=== PATIENT | female | born 1965 | race American Indian/Alaskan Native ===

== ENCOUNTER 2018-04-28 15:00 | Emergency (ER) | payer SELFPAY ==
--- NOTE | 2018-04-28 18:44 | XRay Report ---
FINAL REPORT EXAM: XR CHEST ROUTINE 2V HISTORY: cough TECHNIQUE: Two views of the chest Comparison: None FINDINGS: Normal heart size. Bronchial wall thickening with mild reticular coarsening of the bronchovascular interstitium. Lateral film is mildly motion degraded. No definite effusion. Imaged axial skeleton demonstrates lower cervical degenerative facet osteoarthritis, otherwise unrema rkable. IMPRESSION: Findings compatible with bronchitis, chronicity is unknown. No definite focal pneumonia. Probable underlying pulmonary emphysema. Correlate with smoking history. Lower cervical degenerative arthritis.
--- NOTE | 2018-04-28 20:10 | Emergency Department Report ---
- General Chief Complaint: Upper Respiratory Infection Stated Complaint: COUGHING Time Seen by Provider: 04/28/18 17:36 Source: patient Mode of arrival: Ambulatory Limitations: No Limitations - History of Present Illness Initial Comments: 52-year-old female has a history of HIV presents emergency department complaining of cough and congestion and bronchitis. She was seen at the [facility] 2 day by nurse practitioner and diagnosed with seemed to be bronchitis and treated accordingly with doxycycline and albuterol. She presents emergency department. She states she was advised by the [facility] to come to the ER for further evaluation and definitive management. Patient didn't fill her prescriptions had not yet started them. She reports no progression in her symptoms since June. No hemoptysis, no hematemesis or hematochezia. She denies any fever but has had cough with mucus production. MD Complaint: cough -: Gradual (2 days) Severity: mild Quality: aching Consistency: constant Worsens With: nothing Associated Symptoms: rhinorrhea, nasal congestion, cough. denies: myalgias, diaphoresis, abdominal pain, vomiting, diarrhea, right sweats, weight loss, epistaxis Treatments Prior to Arrival: none - Related Data Previous Rx's Medication Instructions Recorded Last Taken Type guaiFENesin/CODEINE [Robitussin AC] 5 ml PO Q6H PRN #120 ml 04/28/18 Unknown Rx predniSONE [Deltasone] 20 mg PO QDAY #5 tab 04/28/18 Unknown Rx Allergies Allergy/AdvReac Type Severity Reaction Status Date / Time No Known Allergies Allergy Unverified 04/28/18 15:14 ED Review of Systems ROS: Stated complaint: COUGHING Other details as noted in HPI Constitutional: denies: chills, fever Eyes: denies: eye pain, eye discharge, vision change ENT: congestion. denies: ear pain, throat pain Respiratory: cough. denies: shortness of breath, wheezing Cardiovascular: denies: chest pain, palpitations Endocrine: no symptoms reported Gastrointestinal: denies: abdominal pain, nausea, diarrhea Genitourinary: denies: urgency, dysuria, discharge Musculoskeletal: denies: back pain, joint swelling, arthralgia Skin: denies: rash, lesions Neurological: denies: headache, weakness, paresthesias Psychiatric: denies: anxiety, depression Hematological/Lymphatic: denies: easy bleeding, easy bruising ED Past Medical Hx - Past Medical History Previous Medical History?: Yes Hx HIV: Yes Additional medical history: High cholesterol - Surgical History Past Surgical History?: No - Social History Smoking Status: Current Every Day Smoker Substance Use Type: None - Medications Home Medications: Home Medications Medication Instructions Recorded Confirmed Last Taken Type guaiFENesin/CODEINE [Robitussin AC] 5 ml PO Q6H PRN #120 ml 04/28/18 Unknown Rx predniSONE [Deltasone] 20 mg PO QDAY #5 tab 04/28/18 Unknown Rx ED Physical Exam - General Limitations: No Limitations General appearance: alert, in no apparent distress - Head Head exam: Present: atraumatic, normocephalic - Eye Eye exam: Present: normal appearance, PERRL, EOMI Pupils: Present: normal accommodation - ENT ENT exam: Present: mucous membranes moist - Neck Neck exam: Present: normal inspection, full ROM - Respiratory Respiratory exam: Present: normal lung sounds bilaterally, wheezes, rhonchi. Absent: respiratory distress, chest wall tenderness, accessory muscle use - Cardiovascular Cardiovascular Exam: Present: regular rate, normal rhythm. Absent: systolic murmur, diastolic murmur, rubs, gallop - GI/Abdominal GI/Abdominal exam: Present: soft, normal bowel sounds - Extremities Exam Extremities exam: Present: normal inspection, full ROM, normal capillary refill. Absent: pedal edema - Back Exam Back exam: Present: normal inspection - Neurological Exam Neurological exam: Present: alert, oriented X3 - Psychiatric Psychiatric exam: Present: normal affect, normal mood - Skin Skin exam: Present: warm, dry, intact, normal color. Absent: rash ED Course Vital Signs 04/28/18 15:11 Temperature 98.9 F Pulse Rate 96 H Respiratory 18 Rate Blood Pressure 133/76 O2 Sat by Pulse 96 Oximetry ED Medical Decision Making - Medical Decision Making The paperwork [facility]. [facility]. Advised to follow-up with the [place] [facility]. She reports no known history of asthma to her knowledge, there is no date. Further follow-up will person for her to follow-up with or the actual reason for the follow-up. I was unable to get her any further on this matter. Advised about the [facility] advisor that he could possibly return to the [facility] clinic to get clarification on is what her actual discharge expectations Critical care attestation.: If time is entered above; I have spent that time in minutes in the direct care of this critically ill patient, excluding procedure time. ED Disposition Clinical Impression: Cough, Acute bronchitis Disposition: DC-01 TO HOME OR SELFCARE Is pt being admited?: No Does the pt Need Aspirin: No Condition: Stable Instructions: Acute Bronchitis (ED) Referrals: PRIMARY CARE, [Primary Care Provider] - 3-5 Days [facility] [Provider Group] - 3-5 Days
[2018-04-28 20:28] VITALS: BP 130/68
== END 2018-04-28 20:26 | disposition home or self-care (01) ==
LOC: ED 15:00
DX: J20.9 Acute bronchitis, unspecified (principal); E78.00 Pure hypercholesterolemia, unspecified; F17.200 Nicotine dependence, unspecified, uncomplicated; Z21 Asymptomatic human immunodeficiency virus [HIV] infection status
CPT/HCPCS: 71046; 99283